=== PATIENT | female | born 1980 | race African-American/Black ===

== ENCOUNTER 2016-10-02 15:32 | Emergency (ER) | payer OTHER ==
[2016-10-02 15:39] VITALS: BP 136/85; PULSE 69; TEMP 98; BMI 18.6
[2016-10-02] MEDS ORDERED: OXYCODONE/APAP 5/325MG COMBO TABLET PO ONE (16:35)
[2016-10-02] MEDS ORDERED: OXYCODONE/APAP 5/325MG COMBO TABLET ONE (16:49)
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
== END 2016-10-02 18:31 | disposition home or self-care (01) ==
LOC: JERFT 15:32
DX: S90.31XA Contusion of right foot, initial encounter (principal); W20.8XXA Other cause of strike by thrown, projected or falling object, initial encounter; Y93.89 Activity, other specified; Y92.89 Other specified places as the place of occurrence of the external cause; F41.8 Other specified anxiety disorders; G47.00 Insomnia, unspecified
CPT/HCPCS: 73610-TC-RT; 73630-TC-RT; 84703; 99281-25

== ENCOUNTER 2018-11-10 18:14 | Emergency (ER) | payer OTHER ==
[2018-11-10 18:27] VITALS: BP 119/78; PULSE 76; TEMP 99; BMI 16.7
--- NOTE | 2018-11-10 18:30 | PDOC ---
Rapid Medical Evaluation Chief Complaint: Pain Time Seen by Provider: 11/10/18 18:23 Medical Evaluation: Allergies Allergy/AdvReac Type Severity Reaction Status Date / Time No Known Drug Allergies Allergy Verified 11/10/18 18:21 11/10/18 18:27 I have performed a brief in-person evaluation of this patient. The patient presents with a chief complaint of: throat pain and swelling . S/p thyroidectomy 2016 uncertain cause? cancer? Pertinent physical exam findings: no redness/ exudate/swelling to throat, has mild tender submand nodes. Is pale I have ordered the following: UA/ UcG/ The patient will proceed to the ED for further evaluation. Discharge Disposition - Diagnosis Throat pain in adult - Referrals Referrals: Vidal Chambers [Primary Care Provider] - - Patient Instructions - Post Discharge Activity
[2018-11-10] MEDS ORDERED: DEXAMETHASONE LIQUID 0.5 MG/5 ML 240 ML BULK BOTTLE PO ONE (19:39)
[2018-11-10 19:42] LABS: URINE APPEARANCE CLEAR; URINE BILIRUBIN NEGATIVE (NEGATIVE); URINE COLOR YELLOW; URINE GLUCOSE (UA) NEGATIVE (NEGATIVE); URINE KETONE NEGATIVE (NEGATIVE); URINE LEUK ESTERASE NEGATIVE (NEGATIVE); URINE NITRITE NEGATIVE (NEGATIVE); URINE PROTEIN NEGATIVE (NEGATIVE)
[2018-11-10] MEDS ORDERED: DEXAMETHASONE SOD PHOSPHATE 10 MG/1 ML VIAL ONE (19:43)
--- NOTE | 2018-11-10 19:58 | PDOC ---
History of Present Illness - General Chief Complaint: Head/Neck problem Stated Complaint: PAIN Time Seen by Provider: 11/10/18 18:23 - History of Present Illness Initial Comments: 11/10/18 19:53 CHIEF COMPLAINT: throat swelling HISTORY OF PRESENT ILLNESS: 38 yo F with hx of thyroidectomy presenst to fast track with "pressure and swelling from the inside of my throat and ears." Patient denies any fever, chills, nausea, vomiting, diarrhea, denies any rash or recent exposure to allergens. No recent travel or sick contacts. PAST MEDICAL HISTORY: Denies past medical history FAMILY HISTORY: Denies SOCIAL HISTORY: Denies tobacco, alcohol, illicit drug use. SURGICAL HISTORY: Denies ALLERGIES: No known drug allergies REVIEW OF SYSTEMS General/Constitutional: Denies fever or chills. Denies weakness, weight change. HEENT: "pressure from my throat." Denies change in vision. Denies ear pain or discharge. Cardiovascular: Denies chest pain or shortness of breath. Respiratory: Denies cough, wheezing, or hemoptysis. Gastrointestinal: Denies nausea, vomiting, diarrhea or constipation. Denies rectal bleeding. Genitourinary: Denies dysuria, frequency, or change in urination. Musculoskeletal: Denies joint or muscle swelling or pain. Denies neck or back pain. Skin: Denies rash or easy bruising. Neurologic: Denies headache, vertigo, loss of consciousness, or loss of sensation. PHYSICAL EXAM General Appearance: Well-appearing, appropriately dressed. No apparent distress , no intoxication. HEENT: EOMI, PERRLA, normal ENT inspection, normal voice, TMs normal, pharynx normal. No conjunctival pallor. No photophobia, scleral icterus. Neck: Supple. Trachea midline. No tenderness, rigidity, carotid bruit, stridor , lymphadenopathy, or thyromegaly. Respiratory/Chest: Lungs CTAB. No shortness of breath, chest tenderness, respiratory distress, accessory muscle use. No crackles, rales, rhonchi, stridor , wheezing, dullness Cardiovascular: RRR. S1, S2. No JVD, murmur, bradycardia, tachycardia. Vascular Pulses: Dorsalis-Pedis (R): 2+, Dorsalis-Pedis (L): 2+ Gastrointestinal/Abdominal: Normal bowel sounds. Abdomen soft, non-distended. No tenderness or rebound tenderness. No organomegaly, pulsatile mass, guarding , hernia, hepatomegaly, splenomegaly. Lymphatic: No adenopathy, tenderness. Musculoskeletal/Extremities: Normal inspection. FROM of all extremities, normal capillary refill. Pelvis Stable. No CVA tenderness. No tenderness to extremities, pedal edema, swelling, erythema or deformity. Integumentary: Appropriate color, dry, warm. No cyanosis, erythema, jaundice or rash Neurologic: port captain II-XII intact. Fully oriented, alert. Appropriate mood/affect. Motor strength 5/5. No appreciable EOM palsy, facial droop or sensory deficit. Past History - Past Medical History Allergies/Adverse Reactions: Allergies Allergy/AdvReac Type Severity Reaction Status Date / Time No Known Drug Allergies Allergy Verified 11/10/18 18:21 Home Medications: Ambulatory Orders Mirtazapine [Remeron] 30 mg PO HS 07/30/13 Clonazepam [Klonopin] 1 mg PO BID 02/12/15 Levothyroxine [Synthroid -] 175 mcg PO DAILY 10/02/16 Tramadol HCl 50 mg PO TID #12 tablet MDD 3 10/02/16 COPD: No Hypercholesterolemia: (?) Psychiatric Problems: Yes (DEPRESSION ANXIETY INSOMNIA) Thyroid Disease: Yes - Family Disease History Family Disease History: Heart Disease: Father - Reproductive History (#): 5 Para: 2 Therapeutic (s) & number: Yes (2) - Immunization History Immunization Up to Date: No - Suicide/Smoking/Psychosocial Hx Smoking History: Current every day smoker Have you smoked in the past 12 months: No Number of Cigarettes Smoked Daily: 1 Cigars Per Day: 2 Information on smoking cessation initiated: No 'Breaking Loose' booklet given: 07/30/13 Hx Alcohol Use: No Drug/Substance Use Hx: No Substance Use Type: Alcohol, Marijuana Hx Substance Use Treatment: No *Physical Exam - Vital Signs Last Vital Signs Temp Pulse Resp BP Pulse Ox 99.0 F 76 18 119/78 100 11/10/18 18:23 11/10/18 18:23 11/10/18 18:23 11/10/18 18:23 11/10/18 18:23 ED Treatment Course - ADDITIONAL ORDERS Additional order review: Laboratory Results 11/10/18 11/10/18 19:30 19:30 Urine Color Yellow Urine Appearance Clear Urine pH 6.0 Ur Specific [place] 1.021 Urine Protein Negative Urine Glucose (UA) Negative Urine Ketones Negative Urine Blood Negative Urine Nitrite Negative Urine Bilirubin Negative Urine Urobilinogen 1.0 Ur Leukocyte Esterase Negative Urine HCG, Qual Negative - Medications Given in the ED: ED Medications Discontinued Medications Generic Name Dose Route Start Last Admin Trade Name Hema PRN Reason Stop Dose Admin Dexamethasone 10 mg 11/10/18 19:39 11/10/18 19:45 Decadron Liquid - PO 11/10/18 19:40 10 mg ONCE ONE Administration Medical Decision Making - Medical Decision Making 11/10/18 19:57 38 yo F with hx of thyroidectomy presenst to fast track with "pressure and swelling from the inside of my throat and ears." rapid strep decadron po patient followed by ENT Nasreen, advised patient to f/u within the next 1-2 days *DC/Admit/Observation/Transfer Diagnosis at time of Disposition: Throat pain in adult - Discharge Dispostion Disposition: HOME Condition at time of disposition: Stable Decision to Admit order: No - Referrals Referrals: Vidal Chambers [Primary Care Provider] - Curtis Downey MD [Staff Physician] - - Patient Instructions Additional Instructions: As discussed, please follow up with Dr. Downey for continued management of your thyroid condition. If you develop any difficulty breathing, worsening swelling of your throat, fever, vomiting, or any new or worsening symptoms, please return to the ER. - Post Discharge Activity
== END 2018-11-10 20:11 | disposition home or self-care (01) ==
LOC: JERFT 18:14
DX: R07.0 Pain in throat (principal); E89.0 Postprocedural hypothyroidism; F17.210 Nicotine dependence, cigarettes, uncomplicated
CPT/HCPCS: 81003; 84703; 87070; 87880; 99281-25

== ENCOUNTER 2019-03-27 13:33 | Emergency (ER) | payer OTHER ==
[2019-03-27 13:42] VITALS: BP 118/71; PULSE 66; TEMP 97.9; BMI 16.7
--- NOTE | 2019-03-27 13:59 | PDOC ---
History of Present Illness - General Chief Complaint: Bite Stated Complaint: CAT BITE Time Seen by Provider: 03/27/19 13:45 History Source: Patient Exam Limitations: Clinical Condition - History of Present Illness Initial Comments: 03/27/19 14:00 Patient with no significant past medical history present with complaint of redness to left distal forearm status post cat bite yesterday from a neighbor's cat. Patient reports she was petting the cat and the cat bit her yesterday. Reports localized pain to bite area with redness. Patient reported last tetanus vaccine 2 years ago. Denies any other symptoms Timing/Duration: reports: yesterday Past History - Past Medical History Allergies/Adverse Reactions: Allergies Allergy/AdvReac Type Severity Reaction Status Date / Time No Known Drug Allergies Allergy Verified 03/27/19 13:39 Home Medications: Ambulatory Orders Mirtazapine [Remeron] 30 mg PO HS 07/30/13 Clonazepam [Klonopin] 1 mg PO BID 02/12/15 Levothyroxine [Synthroid -] 175 mcg PO DAILY 10/02/16 Tramadol HCl 50 mg PO TID #12 tablet MDD 3 10/02/16 Amox-Tr/K Cl [Augmentin - 875Mg Tablet] 1 tab PO BID #14 tablet 03/27/19 Mupirocin Ointment [Bactroban 2% Ointment -] 1 applic TP BID 7 Days #1 tube COPD: No Hypercholesterolemia: (?) Psychiatric Problems: Yes (DEPRESSION ANXIETY INSOMNIA) Thyroid Disease: Yes - Reproductive History (#): 5 Para: 2 Therapeutic (s) & number: Yes (2) - Immunization History Immunization Up to Date: No - Psycho Social/Smoking Cessation Hx Smoking History: Never smoked Have you smoked in the past 12 months: No Number of Cigarettes Smoked Daily: 1 Cigars Per Day: 2 'Breaking Loose' booklet given: 07/30/13 Hx Alcohol Use: No Drug/Substance Use Hx: No Substance Use Type: Alcohol, Marijuana Hx Substance Use Treatment: No Review of Systems - Review of Systems Able to Perform ROS?: Yes Is the patient limited Lithuanian proficient: No Constitutional: No: Fever, Malaise, Weakness HEENTM: No: Symptoms Reported Respiratory: No: Symptoms reported, See HPI, Cough, Orthopnea, Shortness of Breath, SOB with Exertion, SOB at Rest, Stridor, Wheezing, Productive cough, Hemoptysis, Other Cardiac (ROS): No: Symptoms Reported, See HPI, Chest Pain, Edema, Irregular Heart Rate, Lightheadedness, Palpitations, Syncope, Chest Tightness, Other ABD/GI: No: Symptoms Reported Musculoskeletal: Yes: Symptoms Reported, See HPI, Muscle Pain (left distal forearm around bite area) Integumentary: Yes: Symptoms Reported, Lumps (bite to left forearm from cat) Neurological: No: Symptoms reported, Numbness, Paresthesia, Tingling, Weakness All Other Systems: Reviewed and Negative *Physical Exam - Vital Signs Last Vital Signs Temp Pulse Resp BP Pulse Ox 97.9 F 66 16 118/71 99 03/27/19 13:39 03/27/19 13:39 03/27/19 13:39 03/27/19 13:39 03/27/19 13:39 - Physical Exam General Appearance: Yes: Nourished, Appropriately Dressed. No: Apparent Distress HEENT: positive: Normal ENT Inspection Neck: positive: Supple Respiratory/Chest: positive: Lungs Clear, Normal Breath Sounds. negative: Respiratory Distress, Accessory Muscle Use Musculoskeletal: positive: Normal Inspection Extremity: positive: Normal Capillary Refill Integumentary: positive: Erythema (localized 3cm area of skin erythema surrounding 1mm induration with tiny entry point from cat bite. no open wounds. no drainage from site) Neurologic: positive: Fully Oriented, Alert, Normal Mood/Affect, Normal Response , Motor Strength 5/5 Medical Decision Making - Medical Decision Making 03/27/19 14:01 Patient with no significant past medical history present with complaint of redness to left distal forearm status post cat bite yesterday from a neighbor's cat. Patient reports she was petting the cat and the cat bit her yesterday. Reports localized pain to bite area with redness. Patient reported last tetanus vaccine 2 years ago. Denies any other symptoms Exam significant for 3 cm area of skin erythema with 1 mm area of skin duration and tiny bite adrienne to plantar aspect of left forearm. No open wound or discharge from site. Patient stable for outpatient management on Augmentin antibiotics twice daily for a week and topical mupirocin with advised to do hot compress and take Motrin as needed for pain with PCP follow-up. Patient advised to watch carbs for the next few days for any change in behavior and report to PCP if any change in behavior Discharge - Discharge Information Problems reviewed: Yes Clinical Impression/Diagnosis: Cat bite of left forearm Qualifiers: Encounter type: initial encounter Qualified Code(s): S51.852A - Open bite of left forearm, initial encounter Condition: Stable Disposition: HOME - Admission No - Additional Discharge Information Prescriptions: Amox-Tr/K Cl [Augmentin - 875Mg Tablet] 1 tab PO BID #14 tablet Mupirocin Ointment [Bactroban 2% Ointment -] 1 applic TP BID 7 Days #1 tube - Follow up/Referral Referrals: Vidal Chambers [Primary Care Provider] - - Patient Discharge Instructions Patient Printed Discharge Instructions: How to Care for a Domestic Animal Bite , DI for Animal Bites Additional Instructions: Apply prescribed antibiotic ointment twice a day to wound for a week. Take prescribed antibiotics and finish. Apply warm compress to area as needed for swelling. Follow-up. Primary care in 3 to 5 days for reassessment - Post Discharge Activity
== END 2019-03-27 14:07 | disposition home or self-care (01) ==
LOC: JERFT 13:33
DX: S51.852A Open bite of left forearm, initial encounter (principal); W55.01XA Bitten by cat, initial encounter; Y93.K9 Activity, other involving animal care; Y92.018 Other place in single-family (private) house as the place of occurrence of the external cause; Y99.8 Other external cause status
CPT/HCPCS: 99281-25

== ENCOUNTER 2019-09-29 07:48 | Emergency (ER) | payer OTHER ==
[2019-09-29 08:34] VITALS: BMI 15.2
[2019-09-29] MEDS ORDERED: KETOROLAC TROMETHAMINE 15 MG/ML VIAL IVPUSH ONE (09:07)
[2019-09-29] MEDS ORDERED: KETOROLAC TROMETHAMINE 15 MG/ML VIAL ONE (09:07)
--- NOTE | 2019-09-29 09:56 | PDOC ---
Documentation entered by Opal Red SCRIBE, acting as scribe for Laci Santamaria MD. Laci Santamaria MD: This documentation has been prepared by the Teofilo abraham Xhesika, SCRIBE, under my direction and personally reviewed by me in its entirety. I confirm that the documentation accurately reflects all work, treatment, procedures, and medical decision making performed by me. History of Present Illness - General Chief Complaint: Pain Stated Complaint: PAIN Time Seen by Provider: 09/29/19 08:56 History Source: Patient Exam Limitations: No Limitations - History of Present Illness Initial Comments: 09/29/19 09:11 Patient is a 39 year old female with a significant past medical history of thyroidectomy who presents to the ED with three days of right flank pain. Patient describes her pain as constant, sharp in nature, radiating to her g roin, and worsened by movement and deep inspiration. Patient reports her endocrine doctor suggested she visit the ED for further evaluation of her symptoms. Denies chest pain, shortness of breath, fever, chills, nausea, vomiting. Denies frequency, urgency, hematuria, dysuria. Denies any other sympto ms. Allergies: NKDA PCP: Vidal Nelson Past History - Medical History Allergies/Adverse Reactions: Allergies Allergy/AdvReac Type Severity Reaction Status Date / Time No Known Drug Allergies Allergy Verified 09/29/19 08:30 Home Medications: Ambulatory Orders Mirtazapine [Remeron] 30 mg PO HS 07/30/13 Clonazepam [Klonopin] 1 mg PO BID 02/12/15 Levothyroxine [Synthroid -] 175 mcg PO DAILY 10/02/16 Tramadol HCl 50 mg PO TID #12 tablet MDD 3 10/02/16 Amox-Tr/K Cl [Augmentin - 875Mg Tablet] 1 tab PO BID #14 tablet 03/27/19 Mupirocin Ointment [Bactroban 2% Ointment -] 1 applic TP BID 7 Days #1 tube 03/27/19 COPD: No Hypercholesterolemia: (?) Psychiatric Problems: Yes (DEPRESSION ANXIETY INSOMNIA) Thyroid Disease: Yes - Reproductive History (#): 5 Para: 2 Therapeutic (s) & number: Yes (2) - Immunization History Immunization Up to Date: No - Psycho-Social/Smoking History Smoking History: Never smoked Have you smoked in the past 12 months: No Number of Cigarettes Smoked Daily: 1 Cigars Per Day: 2 'Breaking Loose' booklet given: 07/30/13 - Substance Abuse Hx (Audit-C & DAST Scrn) How often the patient has a drink containing alcohol: Never Score: In Men: 4 or > Positive; In Women: 3 or > Positive: 0 Screen Result (Pos requires Nsg. Audit-10AR): Negative In the last yr the pt used illegal drug/Rx for NonMed reason: No Score: Yes response is considered Positive: 0 Screen Result (Positive result requires Nsg. DAST-10): Negative Review of Systems - Review of Systems Able to Perform ROS?: Yes Comments:: 09/29/19 09:11 CONSTITUTIONAL: No fever, no chills, no fatigue EYES: No visual changes ENT: No ear pain, no sore throat CARDIOVASCULAR: No chest pain, no palpitations RESPIRATORY: No cough, no SOB GI: + right flank pain. No nausea, no vomiting, no constipation, no diarrhea GENITOURINARY: No dysuria, no frequency, no hematuria MUSKULOSKELETAL: No backpain, no joint pain, no myalgias SKIN: No rash NEURO: No headache *Physical Exam - Vital Signs Last Vital Signs Temp Pulse Resp BP Pulse Ox 98.8 F 58 L 16 118/71 100 09/29/19 08:31 09/29/19 08:31 09/29/19 08:31 09/29/19 08:31 09/29/19 08:31 - Physical Exam 09/29/19 09:11 CONSTITUTIONAL: Well-appearing; well-nourished; in no apparent distress HEAD: Normocephalic; atraumatic EYES: PERRL; EOM intact ENMT: External appears normal; normal oropharynx NECK: Supple; non-tender; no cervical lymphadenopathy CARD: Normal S1, S2; no murmurs, rubs, or gallops RESP: Normal chest excursion with respiration; breath sounds clear and equal bilaterally; no wheezes, rhonchi, or rales ABD: Soft, non-distended; non-tender; no palpable organomegaly, no palpable he rnias EXT: Normal ROM in all four extremities; non-tender to palpation; distal pulses intact SKIN: Warm, dry, no rash NEURO: No focal neurological deficiencies. 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 In the ER, patient is awake and alert, nontoxic-appearing, in no significant distress. Physical exam reveals no significant abnormal findings. Differential diagnosis includes cholelithiasis versus hepatitis versus nephrolithiasis versus pyelonephritis versus musculoskeletal strain. Will administer Toradol, will obtain CBC/CMP/UA. Will obtain right upper quadrant ultrasound chest x-ray. Will reassess. Likely discharge. 09/29/19 11:35 Patient reassessed, patient resting comfortably. CBC/CMP within normal limit. UA is consistent with microscopic hematuria likely related to menses. Right upper quadrant ultrasound chest x-rays reveal no evidence of acute pathology. I do not suspect PE as patient is negative by the PERC rule. Will discharge. Discharge - Discharge Information Problems reviewed: Yes Clinical Impression/Diagnosis: Flank pain Condition: Stable Disposition: HOME - Follow up/Referral Referrals: Vidal Chambers [Primary Care Provider] - - Patient Discharge Instructions Patient Printed Discharge Instructions: DI for Flank Pain - Post Discharge Activity
[2019-09-29 09:57] LABS: BASO % 0.7 % (0-2.0); EOS % 2.2 % (0-4.5); HEMOGLOBIN 14.2 GM/dL (10.7-15.3); LYMPH % 33.8 % (8-40); MCH 32.9 pg (25.7-33.7); MCHC 32.9 g/dl (32.0-36.0); MEAN PLT VOLUME 9.6 fl (7.5-11.1); MONO % 13.7 % (3.8-10.2); NEUT % 49.6 % (42.8-82.8); PLATELET COUNT 232 K/MM3 (134-434); RDW 12.9 % (11.6-15.6)
[2019-09-29 10:12] LABS: EPI CELLS 18 /uL (0-25.1); HYALINE CASTS 2 /uL (0-3.1); URINE APPEARANCE CLEAR; URINE BACTERIA 24 /uL (0-1359); URINE BILIRUBIN NEGATIVE (NEGATIVE); URINE COLOR YELLOW; URINE GLUCOSE (UA) NEGATIVE (NEGATIVE); URINE KETONE NEGATIVE (NEGATIVE); URINE LEUK ESTERASE NEGATIVE (NEGATIVE); URINE NITRITE NEGATIVE (NEGATIVE); URINE PROTEIN NEGATIVE (NEGATIVE); URINE RBC 36 /uL (0-23.9); URINE UROBILINOGEN 0.2 mg/dL (0.2-1.0); URINE WBC 5 /uL (0-25.8)
[2019-09-29 10:13] LABS: ALBUMIN 4.4 g/dl (3.4-5.0); BILIRUBIN,TOTAL 1.4 mg/dL (0.2-1); BLOOD UREA NITROGEN 10.1 mg/dL (7-18); CALCIUM 8.9 mg/dL (8.5-10.1); CREATININE 0.8 mg/dL (0.55-1.3); POTASSIUM 3.7 mmol/L (3.5-5.1); TOT PROT 7.8 g/dl (6.4-8.2)
[2019-09-29 10:31] LABS: HCG,QUALITATIVE URINE Negative
[2019-09-29 11:24] VITALS: BP 101/61; PULSE 55; TEMP 98.3
== END 2019-09-29 11:44 | disposition home or self-care (01) ==
LOC: JER 07:48
PROC: 3E033GC Introduction of Other Therapeutic Substance into Peripheral Vein, Percutaneous Approach (ICD-10-PCS; principal; 2019-09-29)
DX: R10.9 Unspecified abdominal pain (principal)
CPT/HCPCS: 36415; 71046-TC-FY; 76700-TC; 76775-TC; 80053; 81003; 82150; 83690; 84703; 85025; 87086; 99284-25

== ENCOUNTER 2020-03-04 06:45 | Emergency (ER) | payer OTHER ==
[2020-03-04 07:03] VITALS: BP 139/52; PULSE 62; TEMP 98.7; BMI 16.7
[2020-03-04] MEDS ORDERED: ACETAMINOPHEN 500 MG TABLET (FP) PO ONE (07:46)
[2020-03-04] MEDS ORDERED: LIDOCAINE 5% TOPICAL PATCH TP ONE (07:46)
[2020-03-04 09:20] LABS: EPI CELLS 34 /uL (0-25.1); HYALINE CASTS 2 /uL (0-3.1); URINE APPEARANCE CLEAR; URINE BACTERIA 251 /uL (0-1359); URINE BILIRUBIN NEGATIVE (NEGATIVE); URINE COLOR YELLOW; URINE GLUCOSE (UA) NEGATIVE (NEGATIVE); URINE KETONE 1+ (NEGATIVE); URINE LEUK ESTERASE NEGATIVE (NEGATIVE); URINE NITRITE NEGATIVE (NEGATIVE); URINE PROTEIN TRACE (NEGATIVE); URINE RBC 16 /uL (0-23.9); URINE UROBILINOGEN 0.2 mg/dL (0.2-1.0); URINE WBC 5 /uL (0-25.8)
[2020-03-04] MEDS ORDERED: LIDOCAINE PATCH REMOVAL MC SCH (22:00)
== END 2020-03-04 09:45 | disposition left against medical advice (07) ==
LOC: JER 06:45
DX: M79.10 Myalgia, unspecified site (principal)
CPT/HCPCS: 81003; 84703; 87086; 99283-25

== ENCOUNTER 2023-06-29 21:58 | Emergency (ER) | payer OTHER ==
[2023-06-29 22:07] VITALS: BP 146/79; PULSE 97; RESP 18; TEMP 98.8; BMI 16.4
[2023-06-30 00:55] LABS: BASO % 0.3 % (0-2.0); EOS % 0.9 % (0-4.5); HEMATOCRIT 41.4 % (32.4-45.2); HEMOGLOBIN 13.9 GM/dL (10.7-15.3); LYMPH % 40.8 % (8-40); MCH 32.6 pg (25.7-33.7); MCHC 33.7 g/dl (32.0-36.0); MEAN CELL VOLUME 96.9 fl (80-96); MEAN PLT VOLUME 8.3 fl (7.5-11.1); MONO % 11.3 % (3.8-10.2); NEUT % 46.7 % (42.8-82.8); PLATELET COUNT 256 10^3/uL (134-434); RBC 4.27 M/mm3 (3.60-5.2); RDW 13.2 % (11.6-15.6); WHITE BLOOD COUNT 3.9 K/mm3 (4.0-10.0)
[2023-06-30 01:10] LABS: BLOOD UREA NITROGEN 6.6 mg/dL (7-18); CALCIUM 8.8 mg/dL (8.5-10.1)
[2023-06-30 01:11] LABS: ALBUMIN 4.4 g/dl (3.4-5.0)
[2023-06-30 01:13] LABS: CREATININE 0.7 mg/dL (0.55-1.3)
[2023-06-30 01:15] LABS: BILIRUBIN,TOTAL 0.7 mg/dL (0.2-1); TOT PROT 8.2 g/dl (6.4-8.2)
== END 2023-06-30 01:26 | disposition home or self-care (01) ==
LOC: JER 21:58 → JERFT 21:58 → JER 06-30 01:26
DX: H52.531 Spasm of accommodation, right eye (principal); R63.4 Abnormal weight loss; F41.9 Anxiety disorder, unspecified
CPT/HCPCS: 36415; 80053; 84439; 84443; 85025; 99283-25

== ENCOUNTER 2024-10-02 15:34 | Emergency (ER) | payer OTHER ==
[2024-10-02 15:44] VITALS: BP 103/68; PULSE 70; RESP 18; TEMP 99; BMI 16.9
[2024-10-02 16:35] LABS: ABSOLUTE IMMATURE GRANULOCYTES 0.01 x10^3/uL (0.0-0.031); BASOPHILS # 0.03 x10^3/uL (0.01-0.08); EOSINOPHILS # 0.04 x10^3/uL (0.04-0.36); HEMATOCRIT 35.3 % (34.1-44.9); HEMOGLOBIN 11.5 g/dL (11.2-15.7); MCHC 32.6 g/dl (32.2-35.5); MEAN CELL VOLUME 97.8 fl (79.4-94.8); MEAN PLT VOLUME 10.3 fl (9.4-12.3); MONOCYTE # 0.51 x10^3/uL (0.24-0.86); MONOCYTE % 13.2 % (4.7-12.5); PLATELET COUNT 218 x10^3/uL (182-369); RDW 12.9 % (12.2-17.1)
[2024-10-02 16:39] LABS: HCG,QUALITATIVE URINE Negative
[2024-10-02 16:56] LABS: PH,URINE 7.5 (5.0-8.0); URINE APPEARANCE CLEAR; URINE BILIRUBIN NEGATIVE (NEGATIVE); URINE COLOR YELLOW; URINE GLUCOSE (UA) NEGATIVE (NEGATIVE); URINE KETONE NEGATIVE (NEGATIVE); URINE LEUK ESTERASE NEGATIVE (NEGATIVE); URINE NITRITE NEGATIVE (NEGATIVE); URINE PROTEIN NEGATIVE (NEGATIVE); URINE UROBILINOGEN 0.2 mg/dL (0.2-1.0)
[2024-10-02 17:13] LABS: POTASSIUM 3.6 mmol/L (3.5-5.1)
[2024-10-02 17:15] LABS: ALBUMIN 3.8 g/dl (3.4-5.0); CALCIUM 9.7 mg/dL (8.5-10.1)
[2024-10-02 17:16] LABS: BLOOD UREA NITROGEN 8.2 mg/dL (7-18)
[2024-10-02 17:18] LABS: CREATININE 0.7 mg/dL (0.55-1.3)
[2024-10-02 17:20] LABS: BILIRUBIN,TOTAL 0.6 mg/dL (0.2-1)
[2024-10-02] MEDS ORDERED: KETOROLAC TROMETHAMINE 15 MG/ML VIAL ONE (17:23)
[2024-10-02] MEDS: KETOROLAC TROMETHAMINE 15 MG/ML VIAL IVPUSH ONE (17:29)
[2024-10-02] MEDS ORDERED: LIDOCAINE 4% PATCH TP ONE ×2 (19:35)
[2024-10-03] MEDS ORDERED: LIDOCAINE PATCH REMOVAL MC SCH (07:30)
[2024-10-04 20:09] LABS: HCV DIAGNOSTIC IN-HOUSE W/RFLX NON-REACTIVE (NONREACTIVE)
[2024-10-04 20:27] LABS: HIV INTERPRETATION NEGATIVE (NEGATIVE)
== END 2024-10-02 19:32 | disposition home or self-care (01) ==
LOC: JER 15:34
PROC: 3E0333Z Introduction of Anti-inflammatory into Peripheral Vein, Percutaneous Approach (ICD-10-PCS; principal; 2024-10-02)
DX: R10.13 Epigastric pain (principal); R10.30 Lower abdominal pain, unspecified; M54.50 Low back pain, unspecified; R35.0 Frequency of micturition; R39.15 Urgency of urination
CPT/HCPCS: 36415; 74177-TC; 80053; 81003; 84703; 85025; 86803; 87389; 99285-25; Q9967